=== PATIENT | male | born 1945 | race Caucasian/White ===

== ENCOUNTER → 2017-05-13 06:42 | Outpatient (CLI) | payer MEDICARE, SELFPAY ==
--- NOTE | 2017-05-13 12:50 | STRESSREP ---
Stress Test Report Exercise myocardial perfusion stress test. 71-year-old man with a history of chest pain. Stress protocol: Resting EKG demonstrates sinus rhythm with rate of 62 bpm normal intervals and noted resting blood pressure is 122/88 mmHg. The patient exercised according to regular Alfie protocol for a total duration of 6 minutes completing stage II of the Alfie protocol the maximum heart rate attained was 141 bpm which was 93% of maximum predicted heart rate the maximum workload attained was 7 metabolic equivalents. At rest there were no ST or T-wave changes noted suggest ischemia at peak exercise there was approximately 2.[address] depression noted in lead II and II [address]imeters [address] depression noted in leads III and aVF. There was 1.[address] depression noted in lead V5 and V6 patient experienced significant shortness of breath and chest tightness midsternal the test was terminated due to EKG changes. EKG changes reverted back to baseline. The resting blood pressure was 128/88 with a peak blood pressure 160/84. Myocardial perfusion protocol. 14.7 mCi of technetium 99m sestamibi was injected at rest. The patient exercised according to regular Alfie protocol for 6 minutes attaining 93% maximum predicted heart rate and a workload of 7 metabolic equivalents. At peak exercise 44.1 mCi of technetium 99m sestamibi was injected. Stress images were obtained stress and rest images were reconstructed and compared in the short axis vertical long and horizontal long axis. Gated images were also obtained. Perfusion SPECT analysis. Review of the stress images demonstrate normal uptake of tracer noted in all areas of the myocardium. The resting images similarly demonstrated normal uptake of tracer noted in all areas of the myocardium. No reversibility is noted suggest ischemia no previous infarct is noted. Gated SPECT analysis: The gated ejection fraction is noted to be 67%. Conclusion: Abnormal exercise stress test with EKG changes suggestive of ischemia at a moderate workload. Clinical angina noted. Nuclear images do not demonstrate overt changes.
== END ==
PROVIDERS: Family Provider Family Medicine; PCP Family Medicine; Visit Provider Family Medicine
DX: R07.9 Chest pain, unspecified (principal)
CPT/HCPCS: 78452; 93017; A9500; A4216

== ENCOUNTER → 2017-05-28 07:58 | Day surgery (SDC) | payer MEDICARE, SELFPAY ==
--- NOTE | 2017-05-28 10:18 | CL.D_ITS ---
Patient Name: GUZMAN BANERJEE Study Date: 05/28/2017 Performing: Link Bryan MD Ht: 71 inches 180.34 cm : 1945 Wt: 196 lbs 88.904 kg Age: 71 Gender: male BSA: 2.09 PROCEDURE(S) PERFORMED XX96-VYA/COR/LV CLINICAL PROFILE AND INDICATIONS Indications: Other Heart Failure: NYHA Class: 1, Heart Failure Type: Unknown Stress/Imaging Standard Exercise Stress Test: Yes Result: Positive Low Risk Angina Classification Anginal Classification w/in 2 Weeks: No symptoms CAD Presentations: Symptom unlikely to be ischemic. CONCLUSIONS Normal coronary arteries RECOMMENDATIONS Medical therapy DESCRIPTION OF PROCEDURE The patient arrived to the procedure lab. The risks and benefits of the procedure as well as a full d escription of our services here and current unavailability of surgical backup were fully explained to the patient and/or their significant other prior to the catheterization. The Timeout was completed, verifying the correct patient and procedure. The patient's procedural site was prepped and draped in the usual fashion. Local anesthetic was given subcutaneously to right groin region with Lidocaine 2%. Using a modified Seldinger technique, arterial access was obtained via the right femoral artery, a 5 Fr sheath was inserted. Left Coronary Artery selective angiography was performed in multiple views u sing a 5 Fr. JL4 catheter. Right Coronary Artery selective angiography was then performed in multiple views using a 5 Fr. 3DRC (Ace) catheter. Left Ventriculography was performed in NAVARRO projection using a 5 Fr. Pigtail catheter. LV to AO pullback pressures were then recorded.The arterial sheath wa s pulled and a Mynx closure device was deployed for hemostasis CORONARY ANGIOGRAPHY DOMINANCE: Co- Dominant LEFT HEART ASSESSMENT Left Ventricular Ejection Fraction: by LV Gram 60 % Normal LV wall motion Normal Left Ventricular systolic function LEFT MAIN: Angiographically normal LEFT ANTERIOR DECENDING ARTERY: Angiographically normal CIRCUMFLEX ARTERY: Angiographically normal RAMUS: Angiographically normal RIGHT CORONARY ARTERY: Angiographically normal COMPLICATIONS No Complications PROCEDURE MEDICATIONS Versed 1 mg IV Oxygen: 2 L/min via nasal cannula SUMMARY OF HEMODYNAMIC DATA Time AIR REST ECG 08:21:36 AO 157/98 (125) SA 09:40:38 LV 163/7, 31 09:48:42 LV 132/-4, 23 09:48:49 LV 141/-5, 22 09:49:07 LV 148/-7, 21 09:49:16 LV 166/-5, 27 09:50:06 LVp 159/-4, 09:50:11 AOp 164/86 (120) 09:50:16 Signed By Link Bryan MD On 05/28/2017 10:17:41 Link Bryan MD
== END ==
PROVIDERS: Family Provider Family Medicine; PCP Family Medicine; Visit Provider Internal Medicine Cardiovascular Disease
DX: R07.9 Chest pain, unspecified (principal); R94.39 Abnormal result of other cardiovascular function study; E78.4 Other hyperlipidemia; E03.9 Hypothyroidism, unspecified; N40.1 Benign prostatic hyperplasia with lower urinary tract symptoms; R35.1 Nocturia; Z79.1 Long term (current) use of non-steroidal anti-inflammatories (NSAID); Z79.82 Long term (current) use of aspirin; Z79.899 Other long term (current) drug therapy; I50.9 Heart failure, unspecified
CPT/HCPCS: 93458; 99152; 99153; C1760; J7030; C1769; Q9967